=== PATIENT | male | born 1965 | race Caucasian/White ===

== ENCOUNTER 2019-09-20 09:01 | Emergency (ER) | payer OTHER ==
[2019-09-20] MEDS: fentaNYL 250 MCG/5 ML SDV IVPUSH ONE ×2 (09:08→09:52)
--- NOTE | 2019-09-20 09:18 | EDM.PDOC ---
ED HPI GENERAL MEDICAL PROBLEM - General Chief Complaint: Trauma Stated Complaint: WORK INJURY Time Seen by Provider: 09/20/19 09:01 Source of Information: Reports: Patient History Limitations: Reports: No Limitations - History of Present Illness Onset: Today, Sudden Departure - Discharge Information Referrals: PCP,None [Primary Care Provider] -
[2019-09-20] MEDS ORDERED: Iodixanol 652 MG/ML 100 ML Bottle IV PRN (09:21)
[2019-09-20] MEDS ORDERED: Sodium Chloride 0.9% 50 ML SDV FLUSH SCH (09:30)
--- NOTE | 2019-09-20 10:19 | EDM.PDOC ---
ED HPI GENERAL MEDICAL PROBLEM - General Chief Complaint: Trauma Stated Complaint: WORK INJURY Time Seen by Provider: 09/20/19 09:01 Source of Information: Reports: Patient History Limitations: Reports: No Limitations - History of Present Illness INITIAL COMMENTS - FREE TEXT/NARRATIVE: This patient presents to the ED via EMS following an industrial accident at work. He arrives immobilized on a long board with a C-collar in place. According to EMS a large storage tank, approximate weight 300 kg, fell over onto him. His was struck in the back by the object, pushed to the floor onto his abdomen. He was able to partially crawl out from underneath the object. When found by EMS he was in a prone position with object across lower back. He is complaining of pain to his lower back starting at his belt line and goes down. He has more pain on his right than his left and some tingling in the toes of both feet. He did not hit his head or lose consciousness at all. He does not have any nausea and has not had any vomiting. Onset: Today, Sudden Lower Back Pain Score (Numeric/FACES): 10 - Related Data Allergies Allergy/AdvReac Type Severity Reaction Status Date / Time No Known Allergies Allergy Verified 09/20/19 09:37 Home Meds: Home Meds Irbesartan 75 mg PO DAILY 09/20/19 [History] atorvaSTATin [Lipitor] 40 mg PO BEDTIME 09/20/19 [History] Review of Systems - Review of Systems Review Of Systems: See Below Constitutional: Reports: No Symptoms Eyes: Reports: No Symptoms Ears: Reports: No Symptoms Nose: Reports: No Symptoms Mouth/Throat: Reports: No Symptoms Respiratory: Reports: No Symptoms Cardiovascular: Reports: No Symptoms Musculoskeletal: Reports: Arm Pain, Hand Pain, Other (back pain) Skin: Reports: No Symptoms Neurological: Reports: Numbness, Tingling. Denies: Headache, Paresthesia ED EXAM, GENERAL - Physical Exam Exam: See Below Exam Limited By: No Limitations General Appearance: Alert, WD/WN, Anxious, Moderate Distress (related to pain) Eye Exam: Bilateral Eye: PERRL Ears: Normal External Exam, Normal TMs Nose: Normal Inspection, Normal Mucosa Throat/Mouth: Normal Inspection, Normal Oropharynx, Normal Voice, No Airway Compromise Head: Atraumatic, Normocephalic Neck: Supple, Non-Tender, Full Range of Motion, Other (c-collar removed after negative clinical neck exam) Respiratory/Chest: No Respiratory Distress, Lungs Clear, Normal Breath Sounds, No Accessory Muscle Use, Chest Non-Tender. No: Respiratory Distress, Decreased Breath Sounds Cardiovascular: Normal Peripheral Pulses, Regular Rate, Rhythm GI/Abdominal: Normal Bowel Sounds, Soft, Non-Tender, No Distention Rectal (Males) Exam: Normal Exam, Normal Rectal Tone Back Exam: Decreased Range of Motion, Vertebral Tenderness (lumbar spines, distal CMS intact) Extremities: Normal Inspection, Arm Pain, Other (tenderness to palpation of right arm) Neurological: Alert, Oriented, Normal Reflexes, Other (normal rectal tone; no incontinence of bowel or bladder). No: Memory Loss Recent Events Skin Exam: Warm, Dry, Normal Color Course - Vital Signs Last Recorded V/S: Last Vital Signs Temp 36.2 C 09/20/19 09:55 Pulse 74 09/20/19 11:11 Resp 18 09/20/19 11:11 BP 142/81 H 09/20/19 11:11 Pulse Ox 100 09/20/19 11:11 - Orders/Labs/Meds Orders: Active Orders 24 hr Category Date Time Status Lumbar Spine wo Cont [CT] Stat Exams 09/20/19 Taken Iodixanol [Visipaque 320] Med 09/20/19 09:21 Active 100 ml IV . DIRECTED PRN Ondansetron [Zofran] Med 09/20/19 10:38 Ordered 4 mg IVPUSH Q4H PRN Sodium Chloride 0.9% @ 150 MLS/HR (1000ml) Med 09/20/19 10:45 Ordered Sodium Chloride 0.9% [Normal Saline] 1,000 ml IV ASDIRECTED Sodium Chloride 0.9% [Normal Saline] Med 09/20/19 09:30 Active 50 ml FLUSH ONETIME Medication Orders Sodium Chloride (Normal Saline) 1,000 mls @ 150 mls/hr IV ASDIRECTED MARIANA Last Admin: 09/20/19 10:43 Dose: 150 mls/hr Iodixanol (Visipaque 320) 100 ml IV . DIRECTED PRN PRN Reason: RADIOLOGY EXAM Stop: 09/21/19 09:22 Ondansetron HCl (Zofran) 4 mg IVPUSH Q4H PRN PRN Reason: Nausea/Vomiting Last Admin: 09/20/19 10:44 Dose: 4 mg Sodium Chloride (Normal Saline) 50 ml FLUSH ONETIME MARIANA Labs: Laboratory Tests 09/20/19 Range/Units 10:14 Urine Color Yellow Urine Appearance Clear (CLEAR) Urine pH 6.0 (5.0-8.0) Ur Specific [place] 1.015 (1.003-1.030) Urine Protein Negative (NEGATIVE) mg/dL Urine Glucose (UA) Negative (NEGATIVE) mg/dL Urine Ketones Negative (NEGATIVE) mg/dL Urine Occult Blood Negative (NEGATIVE) Urine Nitrite Negative (NEGATIVE) Urine Bilirubin Negative (NEGATIVE) Urine Urobilinogen 0.2 (0.2-1.0) E.U./dL Ur Leukocyte Esterase Negative (NEGATIVE) Meds: Medications Generic Name Dose Route Start Last Admin Trade Name Freq PRN Reason Stop Dose Admin Sodium Chloride 1,000 mls @ 150 mls/hr 09/20/19 10:45 09/20/19 10:43 Normal Saline IV 150 mls/hr ASDIRECTED MARIANA Administration Iodixanol 100 ml 09/20/19 09:21 Visipaque 320 IV 09/21/19 09:22 . DIRECTED PRN RADIOLOGY EXAM Ondansetron HCl 4 mg 09/20/19 10:38 09/20/19 10:44 Zofran IVPUSH 4 mg Q4H PRN Administration Nausea/Vomiting Sodium Chloride 50 ml 09/20/19 09:30 Normal Saline FLUSH ONETIME MARIANA Discontinued Medications Generic Name Dose Route Start Last Admin Trade Name Freq PRN Reason Stop Dose Admin Fentanyl 50 mcg 09/20/19 09:05 09/20/19 09:52 Sublimaze IVPUSH 09/20/19 09:06 50 mcg ONETIME ONE Administration Ondansetron HCl Confirm 09/20/19 10:47 09/20/19 11:08 Zofran Administered 09/20/19 10:48 Not Given Dose 4 mg .ROUTE .ST-MED ONE - Re-Assessments/Exams Free Text/Narrative Re-Assessment/Exam: 09/20/19 10:26 This patient presents to the ED following an industrial accident. History and clinical findings are consistent with multiple right lumbar spine transverse process fractures. The patient also has some numbness and tingling in his feet and right arm pain. Because of the mechanism of injury and the findings, the patient does require a trauma orthopedic evaluation. For this reason, he does require a higher level of care. I contacted [facility] and spoke to Dr. Bergeron in the ED who did agree to accept this patient in transfer. Arrangements were made for this patient to be transferred via [facility] fixed wing to [facility]. Free Text/Narrative Re-Assessment/Exam: 09/20/19 10:39 Continues to have pain in lower back, particularly on right side. Numbness and tingling to right foot/toes, some on left but less. Rascon catheter in place, no incontinence of stool. Free Text/Narrative Re-Assessment/Exam: Vital signs unchanged; distal CMS intact. Continues to complain of pain on the right side; also continues to have numbness and tingling in feet. Readied for transfer. 09/20/19 11:17 Departure - Departure Time of Disposition: 11:20 Disposition: DC/Tfer to Other 70 Condition: Fair Clinical Impression: Fracture of spine, lumbar, without spinal cord injury, closed - Discharge Information Referrals: PCP,None [Primary Care Provider] - Forms: ED Department Discharge Sepsis Event Note - Evaluation Sepsis Screening Result: No Definite Risk - Focused Exam Vital Signs: Vital Signs Temp Pulse Resp BP Pulse Ox 09/20/19 11:11 74 18 142/81 H 100 09/20/19 11:06 73 132/77 100 09/20/19 10:15 80 20 147/84 H 98 09/20/19 09:55 36.2 C 75 20 172/100 H 98 09/20/19 09:47 36.2 C 75 18 168/89 H 97 09/20/19 09:15 36.4 C 77 18 155/90 H 95 09/20/19 09:01 36.2 C 77 20 155/90 H 95 Date Exam was Performed: 09/20/19 Time Exam was Performed: 11:16 - My Orders Last 24 Hours: My Active Orders 09/20/19 Lumbar Spine wo Cont [CT] Stat 09/20/19 09:21 Iodixanol [Visipaque 320] 100 ml IV . DIRECTED PRN 09/20/19 09:30 Sodium Chloride 0.9% [Normal Saline] 50 ml FLUSH ONETIME 09/20/19 10:38 Ondansetron [Zofran] 4 mg IVPUSH Q4H PRN 09/20/19 10:45 Sodium Chloride 0.9% @ 150 MLS/HR (1000ml) Sodium Chloride 0.9% [Normal Saline] 1,000 ml IV ASDIRECTED - Assessment/Plan Last 24 Hours: My Active Orders 09/20/19 Lumbar Spine wo Cont [CT] Stat 09/20/19 09:21 Iodixanol [Visipaque 320] 100 ml IV . DIRECTED PRN 09/20/19 09:30 Sodium Chloride 0.9% [Normal Saline] 50 ml FLUSH ONETIME 09/20/19 10:38 Ondansetron [Zofran] 4 mg IVPUSH Q4H PRN 09/20/19 10:45 Sodium Chloride 0.9% @ 150 MLS/HR (1000ml) Sodium Chloride 0.9% [Normal Saline] 1,000 ml IV ASDIRECTED
[2019-09-20] MEDS ORDERED: Ondansetron 4 MG/2 ML SDV IVPUSH PRN (10:38)
[2019-09-20] MEDS ORDERED: Sodium Chloride 0.9% 1,000 ML IV SCH (10:45)
[2019-09-20] MEDS ORDERED: Ondansetron 4 MG/2 ML SDV ONE (10:47)
--- NOTE | 2019-09-20 10:49 | CR ---
Date of Service: 09/20/19 Clinical Data: trauma RIGHT FOREARM: There is slight buckling of the cortex of the lateral aspect of the radial head on the frontal view. This could be related to trauma. I do not adequately see it on the lateral view. No other evidence of acute fracture or dislocation. No lytic or blastic bone lesions. [id number] [facility]
--- NOTE | 2019-09-20 10:54 | CT ---
Date of Service: 09/20/19 Clinical Data: TRAUMA ENHANCED CHEST CT: Multislice acquisition through the chest with IV contrast was performed. No priors. There are mild [id number] changes in the dependent portion of both lungs. The lungs are otherwise clear. No pneumothorax. No pleural effusions. The heart size is normal. No pericardial effusion. No evidence of aortic aneurysm or dissection. No hilar or mediastinal adenopathy. There is a small hiatal hernia. There is diffuse fatty infiltration of the liver. No osseous abnormalities. No displaced fractures. IMPRESSION: No acute abnormalities. Other findings as discussed above. [id number] Date of Service: 09/20/19 Clinical Data: TRAUMA ENHANCED ABDOMEN AND PELVIC CT: Multislice acquisition through the abdomen and pelvis with IV, but without oral contrast was performed. No priors. There is diffuse fatty infiltration of the liver. No focal hepatic lesions. The gallbladder appears normal. No biliary duct dilatation. There is a small hiatal hernia. The spleen appears normal. The pancreas appears normal. The right and left adrenals appear normal. The right and left kidneys appear normal and enhance symmetrically. No hydronephrosis or hydroureter. The bladder is partially fluid filled. It appears normal. The prostate is mildly enlarged. No evidence of appendicitis. No free air. No free fluid. No dilated loops of bowel. No adenopathy. No aortic aneurysm or dissection. There is a moderate-sized fat-containing umbilical hernia. There are mildly displaced fractures of the transverse processes of L1, L2, L3, and L4 on the right. 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 No spondylolisthesis. No other bony abnormalities. IMPRESSION: Fractures through the transverse processes of L1, L2, L3, and L4 on the right. No other acute abnormalities. Other findings as discussed above. [id number] [facility]
[2019-09-20] MEDS ORDERED: fentaNYL 250 MCG/5 ML SDV IVPUSH ONE (11:23)
[2019-09-20] MEDS ORDERED: LORazepam 2 MG/ML SDV IVPUSH ONE (11:24)
--- NOTE | 2019-09-20 11:30 | CT ---
Date of Service: 09/20/19 Clinical Data: TRAUMA LUMBAR SPINE CT: Multislice axial acquisition was performed. Axial images and sagittal and coronal reformations are reviewed. There are mildly displaced fractures through the transverse processes of L1, L2 , L3, and L4 on the right. No other acute bony abnormalities. 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 No spondylolisthesis. No extruded or protruding disks. No other significant findings. [id number] [facility]
[2019-09-20] MEDS ORDERED: LORazepam 2 MG/ML SDV ONE (11:32)
[2019-09-20] MEDS ORDERED: fentaNYL 100 MCG/2 ML SDV ONE (11:32)
== END 2019-09-20 12:32 | disposition other institution (70) ==
LOC: LB.ED 09:01
DX: S32.019A Unspecified fracture of first lumbar vertebra, initial encounter for closed fracture (principal); S32.029A Unspecified fracture of second lumbar vertebra, initial encounter for closed fracture; S32.039A Unspecified fracture of third lumbar vertebra, initial encounter for closed fracture; S32.049A Unspecified fracture of fourth lumbar vertebra, initial encounter for closed fracture; Z79.899 Other long term (current) drug therapy; W20.8XXA Other cause of strike by thrown, projected or falling object, initial encounter; Y92.69 Other specified industrial and construction area as the place of occurrence of the external cause; Y99.0 Civilian activity done for income or pay
CPT/HCPCS: 71260; 72131; 73090; 74177; 81003; 96361; 96374; 96375; 96376; 99285; A0425; A0429; J2060; J2405; J3010; J7030

== ENCOUNTER 2023-09-01 10:05 | Emergency (ER) | payer OTHER ==
[2023-09-01] MEDS ORDERED: Erythromycin Base 0.5% Ophth Oint 3.5 GM Tube ONE (12:00)
[2023-09-01] MEDS ORDERED: prednisoLONE Acetate 1% Ophth Susp 5 ML Bottle ONE (12:00)
[2023-09-01] MEDS ORDERED: Tetracaine HCl/PF 0.5% 4 ML Bottle EYELF ONE (15:17)
== END 2023-09-01 12:21 | disposition home or self-care (01) ==
LOC: LB.ED 10:05
DX: S05.92XA Unspecified injury of left eye and orbit, initial encounter (principal); I10 Essential (primary) hypertension; E78.00 Pure hypercholesterolemia, unspecified; Z79.899 Other long term (current) drug therapy; X58.XXXA Exposure to other specified factors, initial encounter; Y99.0 Civilian activity done for income or pay
CPT/HCPCS: 99283; A9270-GY

== ENCOUNTER 2024-03-14 04:00 | Emergency (ER) | payer OTHER ==
[2024-03-14] MEDS ORDERED: Naloxone 2 MG/2 ML Syringe IVPUSH PRN (04:32)
[2024-03-14] MEDS ORDERED: Prochlorperazine 10 MG/2 ML SDV ONE (04:38)
[2024-03-14] MEDS ORDERED: diphenhydrAMINE 50 MG/ML SDV ONE (04:38)
[2024-03-14] MEDS ORDERED: HYDROmorphone 2 MG/ML Syringe ONE (04:39)
[2024-03-14] MEDS: diphenhydrAMINE 50 MG/ML SDV IVPUSH ONE ×2 (04:42→10:44)
[2024-03-14] MEDS: Prochlorperazine 10 MG/2 ML SDV IVPUSH ONE ×2 (04:45→10:47)
[2024-03-14] MEDS: HYDROmorphone 2 MG/ML Syringe IVPUSH ONE ×4 (04:48→09:21)
[2024-03-14] MEDS: Sodium Chloride 0.9% 500 ML IV ONE (05:03)
[2024-03-14 05:12] LABS: BASOPHILS ABSOLUTE AUTO 0.03 K/uL (0.02-0.10); BASOPHILS PERCENT AUTO 0.3 % (0.0-0.5); EOSINOPHILS ABSOLUTE AUTO 0.03 K/uL (0.04-0.40); EOSINOPHILS PERCENT AUTO 0.3 % (1.0-5.0); HEMATOCRIT 41.9 % (40.0-54.0); HEMOGLOBIN 14.5 g/dL (13.0-18.0); LYMPHOCYTES ABSOLUTE AUTO 1.51 K/uL (1.50-4.00); LYMPHOCYTES PERCENT AUTO 16.1 % (20.0-40.0); MEAN CORPUSCULAR HEMOGLOBIN 29.2 pg (27.0-32.0); MEAN CORPUSCULAR HGB CONC 34.6 g/dL (31.0-35.0); MEAN CORPUSCULAR VOLUME 84 fL (76-96); MEAN PLATELET VOLUME 11.3 fL (6.0-10.0); MONOCYTES ABSOLUTE AUTO 0.44 K/uL (0.20-0.80); MONOCYTES PERCENT AUTO 4.7 % (3.0-10.0); NEUTROPHILS ABSOLUTE AUTO 7.35 K/uL (2.00-7.50); NEUTROPHILS PERCENT AUTO 78.6 % (45.0-70.0); PLATELET COUNT,PLT 225 K/uL (150-400); RED BLOOD CELL COUNT 4.97 M/uL (4.50-6.50); RED CELL DISTRIBUTION WIDTH 13.7 % (11.0-16.0); WHITE BLOOD CELL COUNT,WBC 9.4 K/uL (4.0-11.0)
[2024-03-14 05:40] LABS: A/G RATIO 1.4 (0.8-2.0); ANION GAP 16.7 mmol/L (5.0-15.0); BILIRUBIN TOTAL 0.9 mg/dL (0.0-1.0); BUN/CREATININE RATIO 15.3 (6-25); CALCIUM 8.4 mg/dL (8.5-10.1); CARBON DIOXIDE,CO2 23.3 mmol/L (21.0-32.0); CREATININE 1.24 mg/dL (0.70-1.30); EST CRCL DRUG DOSING (CG) 73.01 mL/min; PROTEIN TOTAL,TP 6.9 g/dL (6.4-8.2)
[2024-03-14] MEDS: Sodium Chloride 0.9% 30 ML IV ONE (06:04)
[2024-03-14] MEDS: Iopamidol 612 MG/ML 100 ML Bottle IV SCH (06:04)
[2024-03-14] MEDS: Sodium Chloride 0.9% 10 ML Syringe FLUSH PRN (06:04)
[2024-03-14] MEDS: hydrALAZINE 20 MG/ML SDV IVPUSH ONE ×2 (08:25→10:40)
[2024-03-14] MEDS: Sodium Chloride 0.9% 10 ML Syringe FLUSH ONE (08:30)
[2024-03-14] MEDS: hydrALAZINE 20 MG/ML SDV ONE ×2 (09:12→10:44)
[2024-03-14] MEDS: Ondansetron 4 MG/2 ML SDV IVPUSH ONE (09:20)
[2024-03-14] MEDS: HYDROmorphone 2 MG/ML Syringe ONE (09:26)
[2024-03-14] MEDS: Ondansetron 4 MG/2 ML SDV ONE (09:26)
[2024-03-14] MEDS ORDERED: HYDROmorphone 2 MG/ML Syringe IVPUSH ONE (10:24)
[2024-03-14] MEDS ORDERED: Prochlorperazine 10 MG in Sodium Chloride 0.9% 50 ML IV ONE (10:24)
[2024-03-14] MEDS: Prochlorperazine 10 MG/2 ML SDV ONE (10:44)
[2024-03-14] MEDS: diphenhydrAMINE 50 MG/ML SDV ONE (10:44)
== END 2024-03-14 11:10 | disposition critical access hospital (66) ==
LOC: LB.ED 04:00
DX: K21.9 Gastro-esophageal reflux disease without esophagitis (principal); K81.9 Cholecystitis, unspecified; I10 Essential (primary) hypertension; E78.00 Pure hypercholesterolemia, unspecified; Z79.899 Other long term (current) drug therapy
CPT/HCPCS: 36415; 74177; 80053; 83690; 85025; 96361; 96374; 96375; 96376; 99285; J0360; J0780; J1170; J1200; J2405; J3490; J7040; Q9967